=== PATIENT | female | born 1965 | race Caucasian/White ===

== ENCOUNTER 2017-05-11 01:05 | Inpatient (IN) | payer OTHER ==
--- NOTE | 2017-05-11 01:40 | ERNOTE ---
Date of Service: 05/11/17 Time Seen by Provider: 05/11/17 01:11 Stated Complaint: TROUBLE BREATHING Presenting Symptoms:: other Source: patient Immunizations: IMMUNIZATION HX Immunizations Up to Date No: Unknown History of Influenza Vaccine Yes Hx Pneumococcal Vaccination No Allergies/Adverse Reactions: Allergies No Known Allergies Allergy (Verified 10/04/15 20:52) Home Medications: HOME MEDICATIONS Hydrochlorothiazide 12.5 mg PO DAILY 04/10/15 [Last Taken Unknown] Irbesartan [Avapro] 300 mg PO DAILY 04/10/15 [Last Taken Unknown] Labetalol HCl [Trandate] 400 mg PO BID 04/10/15 [Last Taken Unknown] - History of Present Ilness Narrative: This is a 51-year-old female who comes to the emergency department saying that she feels sick. The patient says she was diagnosed with "bacterial pneumonia" this was done on Sunday. She was put on moxifloxacin. 400 mg twice a day. She has been taking this. She says this evening around 7 PM she started having some difficulty breathing. She felt like she couldn't get enough air and which made her feel very anxious, so she hyperventilated. She also reports that she has not had very much energy. He says she felt like she was getting better this morning but this evening she feels like she's taken a turn for the worse. She is not coughing. She has no chest pain. She has no swelling in her legs. Patient does not have any other complaints at the moment. Review of Systems - Review of Systems All Other Systems: All systems neg except as marked - Patient's Past Medical History Patient History - Medical: Anxiety Patient History - Cardiac/Respiratory: Hypertension Patient History - Cancer: No Hx of Cancer Patient History - Surgical Procedures: Appendectomy, Cholecystectomy Patient History - Other: None LMP (females 10-50): last week - Family History Mother Family History - Medical: Family History - Cardiac/Respiratory: No pertinent hx Family History - Cancer: No pertinent family hx - Social History Living Situations: alone Abuse History: No History of abuse Psych History: Hx of Anxiety, Hx of Depression Smoking Status: Former smoker Have you smoked in the past 12 months: No Do you dip or chew tobacco: No Patient requests Smoking Cessation Consult: No Initiate information on Smoking Cessation: No Alcohol Use: none Drug Use: none - Immunizations Immunizations Up to Date: No - Unknown Hx Pneumococcal Vaccination: No History of Influenza Vaccine: Yes Physical Exam - Physical Exam General Appearance: Present: wd/wn, alert, no apparent distress Head Exam: Present: normal inspection, no evidence of injury Eye Exam: Normal inspection: bilateral, PERRL: bilateral, EOMI: bilateral Ears, Nose, Throat: Present: normal ENT inspection, normal pharynx Neck: Present: normal inspection, nontender Respiratory: Present: no respiratory distress, normal breath sounds, lungs clear Cardiovascular/Chest: Present: regular rate, rhythm, no murmur Gastrointestinal/Abdominal: Present: normal bowel sounds, nontender, nondistended Back Exam: Present: normal inspection, no CVA tenderness Extremity Exam: Present: normal inspection, non-tender, no edema Neurological Exam: Present: alert, oriented, normal mood/affect, no motor/ sensory deficits Skin Exam: Present: normal color, warm/dry Lymphatic Exam: Present: no adenopathy ED Progress - Results and Orders Patient's Lab Results:: I have reviewed the patient's lab results. - Vital Signs Patient's Vital Signs:: I have reviewed the patient's vital signs. Vital Signs: Vital Signs 05/11/17 05/11/17 01:24 01:37 Temperature 36.7 C Pulse Rate 77 77 Respiratory 20 Rate Blood Pressure 152/67 O2 Sat by Pulse 88 L Oximetry - EKG EKG: NSR EKG read: Interp. by me EKG Comments: Vital sinus rhythm normal axis normal intervals no acute ischemic changes. Completely normal EKG - X-Ray X-Ray #1 X-Ray: chest Interpretation: Interp. by me X-ray Comments: Left lingular infiltrate - Progress/Reassessment Chief Complaint: Upper Respiratory Symptoms Plan - Plan Plan: Critical care time 30 minutes Departure Clinical Impression: Pneumonia, Hypoxemia - Departure Disposition: [facility] Condition: Fair Referrals: Karla Sellers MD [Primary Care Provider] -
[2017-05-11 01:48] LABS: Hematocrit 36.1 % (37.0-47.0); Hemoglobin 11.1 gm/dL (12.5-16.0); Mean Cell Volume 86.4 fl (78-100); Mean Corpuscular Hemoglobin 26.6 pg (27-31); Mean Corpuscular Hgb Conc 30.7 g/dl (32-36); Mean Platelet Volume 9.6 fl (6.0-9.5); Neutrophil # 13.3 K/mm3 (1.3-6.0); Neutrophil % 83.3 % (42-75.0); Platelet Count 309 K/mm3 (150-450); Red Blood Count 4.18 M/mm3 (4.2-5.4); Red Cell Distribution Width 17.9 % (11.5-14.0); White Blood Count 15.9 K/mm3 (4.0-10.5)
[2017-05-11 02:09] LABS: Albumin * 2.9 gm/dl (3.4-5.0); Anion Gap 10.5 mmol/L (6.8-13.8); BUN/Creatinine Ratio 29.7 (9.0-21.6); Bilirubin, Total 0.3 mg/dL (0.0-1.1); Ca. Corrected For Albumin 9.1 mg/dL (8.4-10.2); Calcium * 8.5 mg/dL (7.9-10.9); Carbon Dioxide 30.5 mmol/L (24-32.6); Total Protein 7.1 gm/dL (6.2-8.2); Troponin I 0.046 ng/ml (0.00-0.10)
[2017-05-11] MEDS ORDERED: AZITHROMYCIN 250 MG TABLET PO ONE (02:28)
[2017-05-11 02:38] LABS: Urine Bilirubin Negative (NEGATIVE); Urine Blood Negative /ul (NEGATIVE); Urine Ketone Negative (NEGATIVE); Urine Nitrite Negative (NEGATIVE); Urine Protein Negative (NEGATIVE); Urine Specific Gravity 1.025 SP.GR. (1.005-1.010); Urine Urobilinogen Normal (NORMAL)
[2017-05-11 02:44] LABS: Urine Amorphous Sediment Moderate - 2+ (NONE-FEW); Urine Appearance Clear; Urine Bacteria None Seen; Urine Color Yellow; Urine RBC 0-5 /hpf (0-5); Urine WBC 0-5 /hpf (0-5)
[2017-05-11] MEDS ORDERED: AZITHROMYCIN 250 MG TABLET ONE (03:48)
[2017-05-11] MEDS ORDERED: 0.5 NORMAL SALINE 1,000 ML IV PRN (05:32)
--- NOTE | 2017-05-11 06:39 | HP ---
Chief Complaint - Chief Complaint Date of Service: 05/11/17 Time of Service: 05:54 Chief Complaint: Pneumonia History of Present Illness: 51 years old female adm to the hospital with reports of weakness and pneumonia. PMH significant for anxiety,, hypertension and obesity. pt stated On Sunday she wasn't feeling well. she was outside in the cold and it got hard for her to breath. her sister brought her to the [facility] where she was diagnosed with Bacterial pneumonia and given Moxifloxacin 400mg BID x 10days. Pt stated she had a total of two days worth of the medication, but continue to feel worst. Her gait was unsteady and she fell as a result. She denies cough, chills, fever, palpitation, dizziness and report a slight headache and orthopnea. In ER CXR: Left lingular infiltrate, BNP > 1000, Bun/Cre--->33/1.11, lactic 2.2. spo2 was 88% on RA and while on 3 L nasal cannula 96%. Plan of care discussed with pt she verbalized understanding and agrees. - Patient's Past Medical History Patient History - Medical: Anxiety, Obesity Patient History - Cardiac/Respiratory: Hypertension, Pneumonia Patient History - Cancer: No Hx of Cancer Patient History - Surgical Procedures: Appendectomy, Cholecystectomy, Other - vein stripping Patient History - Other: None LMP (females 10-50): last week LMP (Calendar): 04/30/17 - Family History Mother Family History - Medical: Family History - Cardiac/Respiratory: No pertinent hx Family History - Cancer: No pertinent family hx - Social History Living Situations: alone Abuse History: No History of abuse Psych History: Hx of Anxiety, Hx of Depression Smoking Status: Former smoker Have you smoked in the past 12 months: No Do you dip or chew tobacco: No Patient requests Smoking Cessation Consult: No Initiate information on Smoking Cessation: No Alcohol Use: none Drug Use: none - Immunizations Immunizations Up to Date: No - Unknown Hx Pneumococcal Vaccination: No History of Influenza Vaccine: Yes Review Of Systems (GEN) - Review of Systems Generalized/Overall Review: Present: Weakness, Fatigue EENTM: Present: No Symptoms Reported Respiratory: Present: Shortness of Breath, Orthopnea Cardiac: Present: Edema Abdominal: Present: No Symptoms Reported Genitourinary: Present: No Symptoms Reported Musculoskeletal: Present: No Symptoms Reported Neurological: Present: No Symptoms Reported Skin: Present: No Symptoms Reported Endocrine: Present: No Symptoms Reported Allergies/Adverse Reactions: Allergies Allergy/AdvReac Type Severity Reaction Status Date / Time No Known Allergies Allergy Verified 10/04/15 20:52 Home Medications: HOME MEDICATIONS Hydrochlorothiazide 12.5 mg PO DAILY 04/10/15 [Last Taken Unknown] Irbesartan [Avapro] 300 mg PO DAILY 04/10/15 [Last Taken Unknown] Labetalol HCl [Trandate] 400 mg PO BID 04/10/15 [Last Taken Unknown] Exam - Exam Vital Signs: Vital Signs - Last Taken Temp 36.5 C 05/11/17 04:23 Pulse 74 05/11/17 04:23 Resp 18 05/11/17 04:23 BP 140/69 05/11/17 04:23 Pulse Ox 94 05/11/17 04:23 Constitutional: Present: Alert, Oriented x3, Cooperative, Well developed, Morbidly obese ENT Exam: Present: hearing grossly normal Eye Exam: bilateral eye: normal inspection Neck: Present: full range of motion Back Exam: Present: normal inspection Breasts: Present: Exam deferred Respiratory: Present: chest non-tender, normal breath sounds, no respiratory distress, decreased breath sounds, rales Cardiovascular/Chest: Present: normal peripheral pulses, regular rate, rhythm, no chest tenderness, edema Peripheral Pulses: dorsalis-pedis (R): 2+, dorsalis-pedis (L): 2+ Abdomen: Present: Normal bowel sounds, soft, nontender, nondistended, no rebound tenderness, obese Extremity: Present: normal range of motion Skin Exam: Present: normal color, warm/dry, no cyanosis Neurologic: Present: oriented x 3 Appearance: Present: appropriate appearance Eye contact: Present: cooperative, good eye contact Thoughts: Present: normal thought pattern Diagnostic Studies: Laboratory Results WBC 15.9 K/mm3 (4.0-10.5) H 05/11/17 01:38 RBC 4.18 M/mm3 (4.2-5.4) L 05/11/17 01:38 Hgb 11.1 gm/dL (12.5-16.0) L 05/11/17 01:38 Hct 36.1 % (37.0-47.0) L 05/11/17 01:38 MCV 86.4 fl (78-100) 05/11/17 01:38 MCH 26.6 pg (27-31) L 05/11/17 01:38 MCHC 30.7 g/dl (32-36) L 05/11/17 01:38 RDW 17.9 % (11.5-14.0) H 05/11/17 01:38 Plt Count 309 K/mm3 (150-450) 05/11/17 01:38 MPV 9.6 fl (6.0-9.5) H 05/11/17 01:38 Immature Gran % (Auto) 0.60 % (0.001-0.429) H 05/11/17 01:38 Immature Gran # (Auto) 0.10 K/mm3 (0.000-0.0310) H 05/11/17 01:38 Neutrophils % 83.3 % (42-75.0) H 05/11/17 01:38 Lymphocytes % 8.9 % (20-51) L 05/11/17 01:38 Monocytes % 5.2 % (0.0-9) 05/11/17 01:38 Eosinophils % 1.6 % (0.0-3.0) 05/11/17 01:38 Basophils % 0.4 % (0.0-1.0) 05/11/17 01:38 Nucleated RBC % 0.0 k/mm3 (0-1) 05/11/17 01:38 Neutrophils # 13.3 K/mm3 (1.3-6.0) H 05/11/17 01:38 Lymphocytes # 1.4 k/mm3 (1.5-3.5) L 05/11/17 01:38 Monocytes # 0.8 k/mm3 (0.0-1.0) 05/11/17 01:38 Eosinophils # 0.3 k/mm3 (0.0-0.7) 05/11/17 01:38 Absolute Basophils 0.1 k/mm3 (0.0-0.1) 05/11/17 01:38 Sodium 141 mmol/L (132-142) 05/11/17 01:20 Plasma Sodium 141 mmol/L (130-142) 05/11/17 01:20 Potassium 4.0 mmol/L (3.4-4.6) 05/11/17 01:20 Chloride 104 mmol/L (97-106) 05/11/17 01:20 Carbon Dioxide 30.5 mmol/L (24-32.6) 05/11/17 01:20 Anion Gap 10.5 mmol/L (6.8-13.8) 05/11/17 01:20 BUN 33 mg/dL (3-23) H 05/11/17 01:20 Creatinine 1.11 mg/dL (0.4-1.4) 05/11/17 01:20 Est GFR (Non-Af Amer) 55 mL/min (60-130) L D 05/11/17 01:20 BUN/Creatinine Ratio 29.7 (9.0-21.6) H 05/11/17 01:20 Random Glucose 126 mg/dL (70-110) H 05/11/17 01:20 Lactic Acid, Venous 2.2 mmol/L (0.4-1.9) H* 05/11/17 02:27 Calcium 8.5 mg/dL (7.9-10.9) 05/11/17 01:20 Calcium Adj for Albumin 9.1 mg/dL (8.4-10.2) 05/11/17 01:20 Total Bilirubin 0.3 mg/dL (0.0-1.1) 05/11/17 01:20 AST 14 U/L (0-48) 05/11/17 01:20 ALT 29 U/L (19-67) 05/11/17 01:20 Alkaline Phosphatase 139 U/L (50-170) 05/11/17 01:20 Troponin I 0.046 ng/ml (0.00-0.10) 05/11/17 01:20 B-Natriuretic Peptide 1226 pg/mL (5-150) H 05/11/17 02:21 Total Protein 7.1 gm/dL (6.2-8.2) 05/11/17 01:20 Albumin 2.9 gm/dl (3.4-5.0) L 05/11/17 01:20 Urine Color Yellow 05/11/17 02:19 Urine Appearance Clear 05/11/17 02:19 Urine pH 6.0 pH (5.0-7.0) 05/11/17 02:19 Ur Specific [place] 1.025 SP.GR. (1.005-1.010) 05/11/17 02:19 Urine Protein Negative mg/dL (NEGATIVE) 05/11/17 02:19 Urine Glucose (UA) Negative mg/dL (NEGATIVE) 05/11/17 02:19 Urine Ketones Negative mg/dL (NEGATIVE) 05/11/17 02:19 Urine Blood Negative /ul (NEGATIVE) 05/11/17 02:19 Urine Nitrate Negative (NEGATIVE) 05/11/17 02:19 Urine Bilirubin Negative mg/dl (NEGATIVE) 05/11/17 02:19 Urine Urobilinogen Normal EU/dl (NORMAL) 05/11/17 02:19 Ur Leukocyte Esterase Negative /ul (NEGATIVE) 05/11/17 02:19 Urine RBC 0-5 /hpf (0-5) 05/11/17 02:19 Urine WBC 0-5 /hpf (0-5) 05/11/17 02:19 Ur Epithelial Cells 10-25 /hpf (0-5) H 05/11/17 02:19 Amorphous Sediment Moderate - 2+ (NONE-FEW) H 05/11/17 02:19 Urine Bacteria None seen (NONE) 05/11/17 02:19 Urine Culture Comments No culture indicated 05/11/17 02:19 Assessment/Plan - Narrative Narrative: Pneumonia pt was diagnoses at outside facility on Sunday and began oral antbx Moxifloacin 400mg BID pt stated she was feeling worst despite antbx use. CXR: Left lingular infiltrate Continue with Rocephin and azithromycin, dose was given in ER In ER spo2 88% switched to nasal cannula 96% wean off oxygen Hypoxemia likely due to pneumonia-resolved In ER spo2 88% switched to nasal cannula 96% wean off oxygen plan same as #1 Hypertension On adm BP 140/69 Continue with home dose of medications Dehydration continue with gently hydration Code status: Full GI ppx:protonix VTE ppx: SCD and ambulate - Assessment/Plan (1) Hypertension Problem: Chronic (2) Hypoxemia Problem: Resolved (3) Pneumonia Problem: Acute (4) Dehydration Problem: Acute
[2017-05-11] MEDS: LOSARTAN POTASSIUM 50 MG TABLET PO SCH (09:06)
[2017-05-11] MEDS: LABETALOL HCL 200 MG TABLET PO SCH ×2 (09:06→20:36)
[2017-05-11] MEDS: HYDROCHLOROTHIAZIDE 12.5 MG CAPSULE PO SCH (09:06)
[2017-05-11] MEDS: 0.5 NORMAL SALINE 1,000 ML IV PRN ×2 (11:38→20:41)
[2017-05-11] MEDS ORDERED: FLU VACC QS2017-18(6MOS UP)/PF 60 MCG/0.5 ML SYRINGE IM ONE (12:00)
[2017-05-11] MEDS: traZODone HCL 50 MG TABLET PO SCH ×2 (20:36→20:37)
[2017-05-12] MEDS: HYDROcodone/ACETAMINOPHEN 1 EACH TABLET PO PRN (03:27)
[2017-05-12 06:01] LABS: Hematocrit 36.6 % (37.0-47.0); Hemoglobin 10.9 gm/dL (12.5-16.0); Mean Cell Volume 88.8 fl (78-100); Mean Corpuscular Hemoglobin 26.5 pg (27-31); Mean Corpuscular Hgb Conc 29.8 g/dl (32-36); Mean Platelet Volume 9.1 fl (6.0-9.5); Neutrophil % 81.2 % (42-75.0); Platelet Count 323 K/mm3 (150-450); Red Blood Count 4.12 M/mm3 (4.2-5.4); Red Cell Distribution Width 18.2 % (11.5-14.0); White Blood Count 13.6 K/mm3 (4.0-10.5)
[2017-05-12 06:06] LABS: Anion Gap 6.3 mmol/L (6.8-13.8); BUN/Creatinine Ratio 19.5 (9.0-21.6); Calcium * 8.6 mg/dL (7.9-10.9); Carbon Dioxide 33.6 mmol/L (24-32.6); Estimated Creat Clear 75.2; Potassium 4.9 mmol/L (3.4-4.6)
--- NOTE | 2017-05-12 06:55 | PN ---
Subjective - Date and Time Seen Date: 05/12/17 Time: 06:51 Subjective Narrative: patient seen today AOX3 no acute distress, she was weaned off oxygen yesterday and tolerating well. pt denies cough, fever, chills, palpitation or chest pain. she anticipate discharge home later today. Objective - Review of Systems Generalized/Overall Review: Reports: No Symptoms Reported EENTM: Reports: No Symptoms Reported Respiratory: Reports: No Symptoms Reported Cardiac: Reports: No Symptoms Reported Abdominal: Reports: No Symptoms Reported Genitourinary Symptoms: Reports: No Symptoms Reported Musculoskeletal Complaints: Reports: No Symptoms Reported Neurological: Reports: No Symptoms Reported Skin: Reports: No Symptoms Reported Endocrine: Reports: No Symptoms Reported - Vitals Vitals: Last Vital Signs Temp 36.6 C 05/12/17 03:00 Pulse 82 05/12/17 03:00 Resp 24 H 05/12/17 03:00 BP 108/56 05/12/17 03:00 Pulse Ox 91 05/12/17 03:00 - Abnormal Lab Findings Abnormal Lab Findings: Abnormal Lab Results 05/11/17 05/12/17 05/12/17 Range/Units 06:10 05:40 05:40 WBC 13.6 H (4.0-10.5) K/mm3 RBC 4.12 L (4.2-5.4) M/mm3 Hgb 10.9 L (12.5-16.0) gm/dL Hct 36.6 L (37.0-47.0) % MCH 26.5 L (27-31) pg MCHC 29.8 L (32-36) g/dl RDW 18.2 H (11.5-14.0) % Immature Gran % (Auto) 0.80 H (0.001-0.429) % Immature Gran # (Auto) 0.11 H (0.000-0.0310) K/mm3 Neutrophils % 81.2 H (42-75.0) % Lymphocytes % 10.2 L (20-51) % Neutrophils # 11.0 H (1.3-6.0) K/mm3 Lymphocytes # 1.4 L (1.5-3.5) k/mm3 Potassium 4.9 H D (3.4-4.6) mmol/L Carbon Dioxide 33.6 H (24-32.6) mmol/L Anion Gap 6.3 L (6.8-13.8) mmol/L Random Glucose 119 H (70-110) mg/dL Lactic Acid, Venous 2.1 H* (0.4-1.9) mmol/L - Exam Constitutional: Present: Alert, Oriented x3, Cooperative, Well developed, No distress, Morbidly obese ENT Exam: Present: hearing grossly normal Neck: Present: full range of motion Respiratory: Present: chest non-tender, normal breath sounds, no respiratory distress, decreased breath sounds Cardiovascular/Chest: Present: normal peripheral pulses, regular rate, rhythm, no chest tenderness, no edema, no gallop, no JVD Abdomen: Present: Normal bowel sounds, soft, nontender, nondistended, no rebound tenderness Extremity: Present: normal range of motion, non-tender, normal inspection, no pedal edema Skin Exam: Present: warm/dry, skin rash Neurologic: Present: alert, oriented x 3 Appearance: Present: appropriate appearance, appropriate insight Eye contact: Present: cooperative, good eye contact Thoughts: Present: normal thought pattern Assessment/Plan Plan Narrative: Pneumonia pt was diagnoses at outside facility on Sunday and began oral antbx Moxifloacin 400mg BID pt stated she was feeling worst despite antbx use. CXR: Left lingular infiltrate On adm WBC 15.9--->13.6 Continue with Rocephin and azithromycin 05/11/17 Pt was weaned off oxygen, spo2 92% on RA Hypertension Stable Continue with home dose of medications Dehydration- resolved continue with gently hydration Hypoxic- resolved Code status: Full GI ppx:protonix VTE ppx: SCD and ambulate Time 20 minutes and case discussed with Dr mendieta - Problems/Diagnosis (1) Pneumonia Problem: Acute (2) Dehydration Problem: Resolved (3) Hypertension Problem: Chronic (4) Hypoxemia Problem: Resolved
[2017-05-12] MEDS: AZITHROMYCIN 250 MG TABLET PO SCH (08:12)
[2017-05-12] MEDS: LOSARTAN POTASSIUM 50 MG TABLET PO SCH (08:13)
[2017-05-12] MEDS: LABETALOL HCL 200 MG TABLET PO SCH ×2 (08:13→20:21)
[2017-05-12] MEDS: HYDROCHLOROTHIAZIDE 12.5 MG CAPSULE PO SCH (08:13)
[2017-05-12] MEDS: traZODone HCL 50 MG TABLET PO SCH (20:21)
[2017-05-13] MEDS: HYDROcodone/ACETAMINOPHEN 1 EACH TABLET PO PRN (04:59)
[2017-05-13] MEDS: AZITHROMYCIN 250 MG TABLET PO SCH (08:40)
[2017-05-13] MEDS: LABETALOL HCL 200 MG TABLET PO SCH ×2 (08:40→20:10)
[2017-05-13] MEDS: HYDROCHLOROTHIAZIDE 12.5 MG CAPSULE PO SCH (08:40)
[2017-05-13] MEDS: LOSARTAN POTASSIUM 50 MG TABLET PO SCH (08:41)
--- NOTE | 2017-05-13 08:57 | PN ---
Subjective - Date and Time Seen Date: 05/13/17 Time: 08:48 Subjective Narrative: Still feels very SOB, even at rest, but gets much worse when ambulating. Nursing states that her sats drop a great deal, especially at night and even wonder if she doesn't have ZULMA. She complains of feeling very tired. Pt is not on O2 at home and has no history of smoking or asthma. Objective Objective Narrative: She is very breathless, unable to finish a few words without taking a breath. She is very pick[place] in body habitus. She is on 2LNC. - Review of Systems Generalized/Overall Review: Reports: Weakness, Malaise, Fatigue. Denies: Chills , Fever EENTM: Reports: No Symptoms Reported Respiratory: Reports: Cough, Shortness of Breath Cardiac: Reports: Edema. Denies: Chest Pain Abdominal: Reports: No Symptoms Reported Genitourinary Symptoms: Reports: No Symptoms Reported Musculoskeletal Complaints: Reports: No Symptoms Reported Neurological: Reports: Weakness Skin: Reports: No Symptoms Reported Endocrine: Reports: No Symptoms Reported - Vitals Vitals: Last Vital Signs Temp 36.7 C 05/13/17 07:41 Pulse 86 05/13/17 08:41 Resp 18 05/13/17 07:41 BP 132/58 05/13/17 08:41 Pulse Ox 92 05/13/17 07:41 - Exam Constitutional: Present: Alert, Oriented x3, Cooperative, Moderate distress, Morbidly obese ENT Exam: Present: hearing grossly normal Neck: Present: supple Respiratory: Present: respiratory distress, decreased breath sounds, accessory muscle use, rales - stanley bases. Cardiovascular/Chest: Present: regular rate, rhythm, no murmur Abdomen: Present: Normal bowel sounds, soft, nontender, obese Extremity: Present: no calf tenderness, lower extremity edema - 2+ with satsis changes stanley LE. Skin Exam: Present: pallor Neurologic: Present: normal mood/affect, oriented x 3 Appearance: Present: appropriate appearance, appropriate insight Eye contact: Present: cooperative, good eye contact, normal speech Thoughts: Present: normal thought pattern, no apparent hallucination Assessment/Plan - Problems/Diagnosis (1) Pneumonia Problem: Acute Qualifiers: Pneumonia type: due to unspecified organism Laterality: bilateral Lung location: lower lobe of lung Qualified Code(s): J18.9 - Pneumonia, unspecified organism Narrative: pt. still appears quite ill and SOB. will continue abx, consider adding neb tx to regimen. work on weaning O2, but no d/c until this can happen and I don't see where she's ready for discharge today given her moderate respiratory distress on O2 today. (2) Hypertension Problem: Chronic Qualifiers: Hypertension type: essential hypertension Qualified Code(s): I10 - Essential (primary) hypertension Narrative: stable no changes. (3) Hypoxemia Problem: Acute Narrative: still requiring O2 to keep sats in the mid 90's. If she does have ZULMA, which we can't test while she's here, she will need to vastly better than she is now before we can discharge her home. (4) Discharge planning issues Problem: Acute Narrative: possibly home tomorrow, but don't feel she is safe to go home today.
[2017-05-13] MEDS: ALBUTEROL SULFATE 2.5 MG/0.5 ML VIAL.NEB IH SCH ×5 (10:06→22:42)
[2017-05-13] MEDS: traZODone HCL 50 MG TABLET PO SCH (20:10)
[2017-05-14] MEDS: ALBUTEROL SULFATE 2.5 MG/0.5 ML VIAL.NEB IH SCH ×4 (03:14→14:45)
[2017-05-14] MEDS: LABETALOL HCL 200 MG TABLET PO SCH (09:53)
[2017-05-14] MEDS: AZITHROMYCIN 250 MG TABLET PO SCH (09:53)
[2017-05-14] MEDS: LOSARTAN POTASSIUM 50 MG TABLET PO SCH (09:53)
[2017-05-14] MEDS: HYDROCHLOROTHIAZIDE 12.5 MG CAPSULE PO SCH (09:53)
--- NOTE | 2017-05-14 11:12 | DS ---
(1) Pneumonia Problem: Acute Qualifiers: Pneumonia type: due to unspecified organism Laterality: bilateral Lung location: lower lobe of lung Qualified Code(s): J18.9 - Pneumonia, unspecified organism (2) Hypertension Problem: Chronic Qualifiers: Hypertension type: essential hypertension Qualified Code(s): I10 - Essential (primary) hypertension (3) Hypoxemia Problem: Acute (4) Discharge planning issues Problem: Acute Description of Stay: Patient admitted for stanley pneumonia, tx with IV abx. of azithromycin and rocephin., will be discharged on po zithromax and cefdinir. She still had rales stanley bases, but had only mild respiratory distress at time of discharge as opposed to moderate day PTD. Acute respiratory failure: sats down in the low 80's RA on admit requiring 2 LNC to keep sats in the 90's. Weaned off O2 on day of discharge, sats in the low 90's on RA ?ZULMA given observations by night nurses. Recommend outpt. sleep study by PCP. Due to fatigue will do work excuse for her to be off until next Sunday, but any FMLA paperwork would need to be done by PCP if required by work. Procedures Performed: none Discharge Disposition: Home self care Disposition: Home self-care Condition: Fair Discharge Activity: Activity as tolerated - would recommend off the rest of the week with RTW next Sunday to further recover. Discharge Diet: General/regular food Referrals: Karla Sellers MD [Primary Care Provider] - One Week Prescriptions (Any new or edited meds): Azithromycin [Zithromax] 250 mg PO DAILY #3 tablet Cefdinir 300 mg PO BID #14 capsule Complete Home Medications List: Complete Home Medication List: Hydrochlorothiazide 12.5 mg PO DAILY 04/10/15 Irbesartan [Avapro] 300 mg PO DAILY 04/10/15 Labetalol HCl [Trandate] 400 mg PO BID 04/10/15 Azithromycin [Zithromax] 250 mg PO DAILY #3 tablet 05/14/17 Cefdinir 300 mg PO BID #14 capsule 05/14/17
[2017-05-14 14:30] VITALS: BP 118/46
== END 2017-05-14 18:36 | disposition home or self-care (01) | DRG 194 ==
LOC: ER 01:05 → MS 03:37 → OBSVTOIN 03:37
PROVIDERS: ADMIT Nurse Practitioner; ATTEND Allergy & Immunology
DX: J18.9 Pneumonia, unspecified organism (principal); Z68.44 Body mass index [BMI] 60.0-69.9, adult; E66.2 Morbid (severe) obesity with alveolar hypoventilation; R09.02 Hypoxemia; I10 Essential (primary) hypertension; E86.0 Dehydration; Z23 Encounter for immunization
CPT/HCPCS: 36415; 80048; 80053; 81001; 83605; 83880; 84484; 85025; 87040; 90686; 93005; 94640; 96365; 99291; G0008